=== PATIENT | male | born 1990 | race Caucasian/White ===

== ENCOUNTER 2017-01-26 10:12 | Emergency (ER) | payer OTHER ==
[~2017-01-26] VITALS: Ht 170.2 cm; Wt 59.0 kg
[2017-01-26 11:09] VITALS: BP 117/80
== END 2017-01-26 11:36 | disposition home or self-care (01) ==
LOC: ER 10:25
DX: H10.32 Unspecified acute conjunctivitis, left eye (principal); B99.9 Unspecified infectious disease